=== PATIENT | male | born 2000 | race African-American/Black ===

== ENCOUNTER 2020-01-11 10:50 | Emergency (ER) | payer BC, OTHER ==
[2020-01-11 10:59] VITALS: TEMP 98.1
[2020-01-11] MEDS ORDERED: LIDOCAINE VISCOUS 2% 15 ML CUP MUCOUS MEM ONE (11:13)
[2020-01-11] MEDS ORDERED: DEXAMETHASONE SOD PHOSPHATE 10 MG/ML 1 ML VIAL IM STA (11:13)
[2020-01-11] MEDS ORDERED: cefTRIAXone 1,000 MG VIAL (IM USE) IM STA (11:13)
--- NOTE | 2020-01-11 11:30 | ED ---
ENT HPI - General Chief complaint: ENT Stated complaint: sore throat/can't swallow Time Seen by Provider: 01/11/20 11:02 Source: patient, RN notes reviewed, old records reviewed Mode of arrival: ambulatory Limitations: no limitations - History of Present Illness Initial comments: Patient is a 19-year-old male presents for any tremors today with 3 days of left-sided ear pain, drainage from the sinuses to his throat. He states that he woke up today complaining of swelling of the tonsils and uvula. Patient states that he has a difficult time swallowing. Denies difficulty breathing. He states it feels very swollen. - Related Data Home Medications Medication Instructions Recorded Confirmed Ibuprofen 400 mg PO Q8H 01/11/20 01/11/20 guaiFENesin [Mucinex] 600 mg PO DAILY PRN 01/11/20 01/11/20 Previous Rx's Medication Instructions Recorded Amoxicillin 500 mg PO Q8H #30 capsule 01/11/20 Dexamethasone 0.75 mg PO DAILY #12 tab 01/11/20 Lidocaine Viscous 2% [Xylocaine 5 ml MUCOUS MEM QID 5 Days 01/11/20 Viscous] Allergies Allergy/AdvReac Type Severity Reaction Status Date / Time No Known Allergies Allergy Verified 01/11/20 11:36 Review of Systems ROS Statement: Those systems with pertinent positive or pertinent negative responses have been documented in the HPI. ROS Other: All systems not noted in ROS Statement are negative. Past Medical History Past Medical History: Asthma History of Any Multi-Drug Resistant Organisms: None Reported Additional Past Surgical History / Comment(s): PIN TO LEFT HIP, FX RIGHT Past Psychological History: ADD/ADHD Smoking Status: Current every day smoker Past Alcohol Use History: Daily Past Drug Use History: Marijuana, Prescription Drug Abuse General Exam - General Exam Comments Initial Comments: Pleasant 19-year-old male. Alert and oriented. No significant distress. Limitations: no limitations General appearance: alert, in no apparent distress Head exam: Present: atraumatic, normocephalic, normal inspection Eye exam: Present: normal appearance, PERRL, EOMI. Absent: scleral icterus, conjunctival injection, periorbital swelling ENT exam: Present: mucous membranes moist. Absent: normal exam, normal oropharynx (Patient has erythematous oropharynx evidence of white exudates. Patient has enlarged uvula.), TM's normal bilaterally (Patient has erythematous bulging left TM.) Neck exam: Present: normal inspection, lymphadenopathy. Absent: tenderness, meningismus Respiratory exam: Present: normal lung sounds bilaterally. Absent: respiratory distress, wheezes, rales, rhonchi, stridor Cardiovascular Exam: Present: regular rate, normal rhythm, normal heart sounds. Absent: systolic murmur, diastolic murmur, rubs, gallop, clicks GI/Abdominal exam: Present: soft, normal bowel sounds. Absent: distended, tenderness, guarding, rebound, rigid Extremities exam: Present: normal inspection, full ROM, normal capillary refill. Absent: tenderness, pedal edema, joint swelling, calf tenderness Back exam: Present: normal inspection Neurological exam: Present: alert, oriented X3, CN II-XII intact Psychiatric exam: Present: normal affect, normal mood Course Vital Signs 01/11/20 01/11/20 10:56 11:59 Temperature 98.1 F Pulse Rate 88 62 Respiratory 18 16 Rate Blood Pressure 165/105 118/69 O2 Sat by Pulse 98 98 Oximetry Medical Decision Making - Medical Decision Making 19-year-old male presents emergency today with pharyngitis, enlarged bilateral tonsils and irritation to the uvula. Patient has evidence of exudates. Patient's heterophile is negative. Clinical presentations concern for strep pharyngitis. He also has evidence of left TM effusion and no otitis media. I discussed treating the Patient with antibiotics at this time advised close follow-up with primary care doctor and ENT. Patient was given IM Decadron for swelling as well as Rocephin. I discussed using Magic mouthwash and close follow-up with PCP. Discussed strict return parameters - Lab Data Lab Results 01/11/20 01/11/20 Range/Units 12:10 12:10 Heterophile Antibody Negative (Negative) Group A Strep Rapid Negative (Negative) Disposition Clinical Impression: Pharyngitis, Otitis Disposition: HOME SELF-CARE Condition: Good Instructions (If sedation given, give patient instructions): Pharyngitis (ED), Earache (ED) Additional Instructions: Patient advised to do the mouthwash as prescribed. Follow-up with primary care physician. Take the entire prescription of antibiotics.. Return to the ED if any alarming signs or symptoms occur. Prescriptions: Amoxicillin 500 mg PO Q8H #30 capsule Dexamethasone 0.75 mg PO DAILY #12 tab Lidocaine Viscous 2% [Xylocaine Viscous] 5 ml MUCOUS MEM QID 5 Days Is patient prescribed a controlled substance at d/c from ED?: No Referrals: None,Stated [Primary Care Provider] - 1-2 days Linnea Salinas MD [REFERRING] - 1-2 days Time of Disposition: 12:27
[2020-01-11 12:41] VITALS: BP 118/69; PULSE 62
[2020-01-11 15:32] VITALS: RESP 16
== END 2020-01-11 12:41 | disposition home or self-care (01) ==
LOC: EC 10:50
DX: J02.9 Acute pharyngitis, unspecified (principal); H65.92 Unspecified nonsuppurative otitis media, left ear; F17.200 Nicotine dependence, unspecified, uncomplicated
CPT/HCPCS: 36415; 86308; 87081; 87430; 99283; 96372 ×3; J1100; J0696

== ENCOUNTER 2023-01-07 08:39 | Emergency (ER) | payer OTHER ==
[2023-01-07] MEDS ORDERED: CIPROFLOXACIN-DEXAMETH 0.3-0.1% DROPS 7.5 ML BTL LEFT EAR STA (08:54)
[2023-01-07] MEDS ORDERED: AMOXICILLIN 875 MG TAB PO STA (08:54)
[2023-01-07] MEDS ORDERED: predniSONE 50 MG TAB PO STA (08:55)
[2023-01-07] MEDS ORDERED: MORPHINE SULFATE 2 MG/ML SYRINGE IM STA (09:09)
[2023-01-07] MEDS ORDERED: ACET/COD 300 MG/30 MG STARTER PACK 6 TAB BTL PO STA (09:10)
--- NOTE | 2023-01-07 09:14 | ED ---
ENT HPI - General Chief complaint: ENT Stated complaint: Ear Pain Time Seen by Provider: 01/07/23 08:41 Source: patient, RN notes reviewed Mode of arrival: ambulatory Limitations: no limitations - History of Present Illness Initial comments: This is a 22-year-old male who presents to the emergency department for left ear pain. States that this started yesterday. Today he started to notice blood coming out of the ear which has happened before. Denies any hearing loss. He has not been picking at the ear. He has no upper respiratory symptoms. He has had ear infections in the past. Denies any current fevers. Denies any fevers, chills, sore throat, cough, dyspnea, chest pain, palpitations, abdominal pain, nausea, vomiting, diarrhea, back pain, or headaches. MD complaint: ear pain Onset/Timin -: days(s) Location: L ear - Related Data Home Medications Medication Instructions Recorded Confirmed Ibuprofen 400 mg PO Q8H 01/11/20 01/11/20 guaiFENesin [Mucinex] 600 mg PO DAILY PRN 01/11/20 01/11/20 Previous Rx's Medication Instructions Recorded Amoxicillin 500 mg PO Q8H #30 capsule 01/11/20 Lidocaine Viscous 2% [Xylocaine 5 ml MUCOUS MEM QID 5 Days 01/11/20 Viscous] dexAMETHasone [Decadron] 0.75 mg PO DAILY #12 tab 01/11/20 Amoxicillin 875 mg PO Q12HR 10 Days #20 tablet 01/07/23 predniSONE 50 mg PO DAILY 5 Days #5 tab 01/07/23 Allergies Allergy/AdvReac Type Severity Reaction Status Date / Time No Known Allergies Allergy Verified 01/07/23 08:42 Review of Systems ROS Statement: Those systems with pertinent positive or pertinent negative responses have been documented in the HPI. ROS Other: All systems not noted in ROS Statement are negative. Past Medical History Past Medical History: Asthma History of Any Multi-Drug Resistant Organisms: None Reported Additional Past Surgical History / Comment(s): PIN TO LEFT HIP, FX RIGHT Past Psychological History: ADD/ADHD Smoking Status: Current every day smoker Past Alcohol Use History: Daily Past Drug Use History: Marijuana, Prescription Drug Abuse General Exam Limitations: no limitations General appearance: alert, in no apparent distress Head exam: Present: atraumatic, normocephalic, normal inspection ENT exam: Present: other (Dried blood in the left ear canal. Erythema and bulging of the left TM. No tenderness to palpation of the tragus or pinna. No erythema or bulging of the right TM.) Respiratory exam: Present: normal lung sounds bilaterally. Absent: respiratory distress, wheezes, rales, rhonchi, stridor Cardiovascular Exam: Present: regular rate, normal rhythm, normal heart sounds. Absent: systolic murmur, diastolic murmur, rubs, gallop, clicks Neurological exam: Present: alert, oriented X3, CN II-XII intact Psychiatric exam: Present: normal affect, normal mood Skin exam: Present: warm, dry, intact, normal color. Absent: rash Course Vital Signs 01/07/23 01/07/23 08:41 09:31 Temperature 98.1 F 98.7 F Pulse Rate 92 83 Respiratory 20 16 Rate Blood Pressure 174/92 160/79 O2 Sat by Pulse 99 98 Oximetry Medical Decision Making - Medical Decision Making This is a 22-year-old male who presents to the emergency department for left ear pain. Was pt. sent in by a medical professional or institution? @ -No Did you speak to anyone other than the patient for history? @ -No Did you review nursing and triage notes? @ -Yes, and I agree, it is accurate with regards to the patient's symptoms. Were old charts reviewed? @ -No Differential Diagnosis? @ -Differential Ear Pain: Otitis media, otitis externa, eustachian tube dysfunction, allergic rhinitis, barotrauma, bullous myringitis, this is not meant to be an all-inclusive list. What testing was considered but not performed? (CT, X-rays, U/S, labs)? Why? @ -None What meds were considered but not given? Why? @ -None Did you discuss the management of the patient with other professionals? @ -No Did you reconcile home meds? @ -No Was smoking cessation discussed for >3mins.? @ -No Was critical care preformed (if so, how long)? @ -No Were there social determinants of health that impacted care today? How? (Homelessness, low income, unemployed, alcoholism, drug addiction, transportation, low edu. Level, literacy, decrease access to med. care, residential, rehab)? @ -No Was there de-escalation of care discussed even if they declined? (Discuss DNR or withdrawal of care, Hospice)? @ -No What co-morbidities impacted this encounter? (DM, HTN, Smoking, COPD, CAD, Cancer, CVA, Hep., AIDS, mental health diagnosis, sleep apnea, morbid obesity)? @ -None Was patient admitted / discharged? @ -Discharged. Physical exam consistent with an otitis media. There is dried blood in the ear canal. It is possible that the patient had a TM perforation. Given the otitis media with possible TM perforation, prescription for amoxicillin provided with dosing instructions reviewed. He was also given a bottle of Ciprodex eardrops in the emergency department. He is instructed to apply 4 drops to the left ear twice daily for 10 days. Prescription for prednisone provided as well. He is instructed to avoid taking over the counter antiinflammatories when taking the Prednisone and to only take it with Tylenol. Information for ENT follow-up provided, advised he contact them if symptoms do not improve. Undiagnosed new problem with uncertain prognosis? @ -None Drug Therapy requiring intensive monitoring for toxicity (Heparin, Nitro, Insulin, Cardizem)? @ -None Were any procedures done? @ -None Diagnosis/symptom? @ -Left otitis media Acute, or Chronic, or Acute on Chronic? @ -Acute Uncomplicated (without systemic symptoms) or Complicated (systemic symptoms)? @ -Uncomplicated Side effects of treatment? @ -None Exacerbation, Progression, or Severe Exacerbation] @ -Not applicable Poses a threat to life or bodily function? @ -No Return precautions reviewed in depth, the patient is instructed to return to the emergency department with any new, worsening, or concerning symptoms. Patient verbalized understanding. This case was discussed in detail with the attending ED physician, Dr. Rowe. Presentation, findings, and treatment plan discussed in detail as well. Disposition Clinical Impression: Left otitis media Disposition: HOME SELF-CARE Instructions (If sedation given, give patient instructions): Ear Infection (ED) Additional Instructions: Return to the emergency department with any new, worsening, or concerning symptoms. Take the antibiotics as prescribed for 10 days. Use the eardrops as 4 drops to the left ear twice daily for 10 days. Take the prednisone daily for 5 days. You may take this with Tylenol. Do not take any [id number] anti-inflammatory such as ibuprofen with the prednisone. If symptoms do not improve, contact ENT as below for a follow-up appointment and reevaluation of symptoms. Prescriptions: Amoxicillin 875 mg PO Q12HR 10 Days #20 tablet predniSONE 50 mg PO DAILY 5 Days #5 tab Is patient prescribed a controlled substance at d/c from ED?: No Referrals: None,Stated [Primary Care Provider] - 1-2 days Robin Lindsay DO [Doctor of Osteopathic Medicine] - 1-2 days
[2023-01-07 09:37] VITALS: BP 160/79; PULSE 83; RESP 16; TEMP 98.7
== END 2023-01-07 09:43 | disposition home or self-care (01) ==
LOC: EC 08:39
DX: H66.92 Otitis media, unspecified, left ear (principal); J45.909 Unspecified asthma, uncomplicated; F12.90 Cannabis use, unspecified, uncomplicated; F17.200 Nicotine dependence, unspecified, uncomplicated; Z79.1 Long term (current) use of non-steroidal anti-inflammatories (NSAID)
CPT/HCPCS: 99282; 96372; J2270; J7512